=== PATIENT | female | born 1935 | race Caucasian/White ===

== ENCOUNTER 2017-01-06 17:37 | Emergency (ER) | payer MEDICARE, BC ==
[2017-01-06] MEDS ORDERED: Albuterol/Ipratropium 3.0-0.5 MG/3 ML Neb Soln NEB ONE (18:33)
[2017-01-06] MEDS ORDERED: Azithromycin 250 MG Tab PO ONE (19:45)
[2017-01-06 20:09] VITALS: BP 127/85
--- NOTE | 2017-01-07 12:22 | CR ---
INDICATION: Cough. CHEST: PA and lateral views of the chest, 01/06/2017, were compared with 2015 and revealed heavy markings at the left lung base and to a lesser extent right lung base. These markings may be on the basis of fibrosis from previous inflammatory disease. However, pneumonia cannot be excluded at the right costophrenic angle to a minimal extent and to a moderate extent at the left lung base - lower lung field. There are also heavy markings in the right mid lung field, which appear similar to the previous study. No gross consolidating pneumonia was identified, however, and no significant pleural fluid was seen, although minimal pleuritis at the costophrenic angles could also be present. This appearance may simply be on the basis of fibrosis, however. Prominent AP diameter, flattening of diaphragm leaves, and mild hyperaeration all suggest COPD. The heart appears enlarged with LVE. The aorta is tortuous with calcification in the arch. Compression fracture is noted at what appears to be T12 and likely was present previously, but to a similar extent. IMPRESSION: 1. Heavy markings at the lung bases, left greater than right, with some pleural thickening at the costophrenic angles, raising question of pneumonia and pleuritis versus pleuroparenchymal fibrosis - correlate clinically. 2. ASHD with LVE. 3. Probable COPD. 4. DJD and question of demineralization, raising question of osteoporosis with a compression fracture that is stable or perhaps slightly increased, compared with 2016. MTDD
--- NOTE | 2017-01-08 12:33 | ER ---
DATE SEEN: 01/06/2017 TIME SEEN: The patient was seen at 1830 hours. HISTORY OF PRESENT ILLNESS: This is a pleasant woman gives a history of increased congestion and cough for the past 5 days without fever. She has mild shortness of breath with exertion. She has history of asthma. She has noticed a slight weather change, but the weather has actually been no decrease in the barometric pressure. No history of fever and no chills. Mild dyspnea on exertion. Denies orthopnea or PND. No pedal edema. No chest pain, irregular heartbeat, atrial fibrillation, headache, strokes, myocardial infarctions. Previous diagnosis of cholelithiasis and also hemochromatosis. Previous history of cholecystectomy, hysterectomy, nonsmoker. Alcohol infrequently. REVIEW OF SYSTEMS: Negative except for patient's cough and as noted above in HPI. PHYSICAL EXAMINATION: VITAL SIGNS: Has a blood pressure of 149/59, heart rate 96 and regular, respirations 16, and oxygen saturation 95%. As the patient's pressure relented in the ED, was dismissed with a blood pressure 129/85 with a heart rate of 61. GENERAL: The patient is alert, has decreased hearing. Looks young for her age (81). HEENT: TMs negative. Pharynx without abnormality. Gag in place. Uvula midline. No thyromegaly. No masses in neck. No cervical adenopathy. CARDIAC: S2 is greater than S1. No murmur heard. LUNGS: There is a mild amount of rales posteriorly in the bases. There are occasional musical rhonchi heard, but this is minimal. No intercostal retractions, subcostal retractions, or suprasternal retractions or jugular venous distention. ABDOMEN: Soft. No hepatosplenomegaly. No guarding. No abdominal discomfort. LOWER EXTREMITIES: With 1+ pedal edema. Dorsalis pedis and posterior tibialis as well as the radial and ulnar pulses are intact and normal. Cap refill is less than 1 second. DIAGNOSTIC DATA: The patient had a chest x-ray. There is some hazy infiltrate at the base of the lungs and the diaphragmatic shadow was very crisp and clear, as well as the cardiac shadow on the right. The left cardiac shadow is a little decreased. ASSESSMENT: 1. Possible atelectasis/pneumonitis or space occupying disease - pneumonia. She no longer has a bronchial wall cuffing that was present on the previous x-ray. Her x-ray looks better than the previous x-ray. 2. Bronchitis. Possible mild pneumonitis. We discussed this with the [facility], who suggested we do not treat with antibiotics. I subjectively note that I will not get by with dismissing this patient without antibiotics, because the demand is very high. She received DuoNeb in the ER and felt much better. She did not have any coughing in the ER. She talks about coughing paroxysms at home. I think this is somewhat frustrating for her. She thinks she has serious illness. 3. Most likely the patient has viral bronchitis. I did use Z-Prudencio, as she preferred, and I did prescribe using DuoNeb at home. It turned out, after arrangements were made, they decided they did not want to use nebulization machine, and they would forego this. PLAN: Plan is to follow up with doctor in a week. Otherwise earlier if worse. OTHER DIAGNOSES: Hemochromatosis, cholelithiasis, decreased hearing, status post cholecystectomy, and hysterectomy. /[id number] MARY/JUANA
== END 2017-01-06 20:07 | disposition home or self-care (01) ==
LOC: FB.ED 17:37
DX: J40 Bronchitis, not specified as acute or chronic (principal)
CPT/HCPCS: 36415; 71020; 80053; 84484; 85025; 94640; 99283; A9270; J7620

== ENCOUNTER 2017-03-26 13:40 | Emergency (ER) | payer MEDICARE, BC ==
[2017-03-26] MEDS ORDERED: predniSONE 20 MG Tab PO ONE (13:59)
--- NOTE | 2017-03-26 14:12 | EDM.PDOC ---
ED HPI GENERAL MEDICAL PROBLEM - General Chief Complaint: Neurological Problem Stated Complaint: FACIAL DROOPING Time Seen by Provider: 03/26/17 13:40 Source of Information: Reports: Patient, Family History Limitations: Reports: No Limitations - History of Present Illness INITIAL COMMENTS - FREE TEXT/NARRATIVE: 81 y.o.w.f came to the ed 2-3 days after she noticed she can not close her right eye in full and had pain, redness of her right eye. Today she noticed a right facial droop, which prompted her to come to the ed. No trauma, no N/V/D. pt had cold symptoms a few days ago. No other acute medical issues. BP 180/91 RR 18 Pulse ox 99% on RA Pulse 78 BPM. Temp 36.7 Onset Date: 03/22/17 Onset Time: 09:00 Duration: Day(s):, Intermittent, Waxing/Waning Location: Reports: Face Quality: Reports: Burning, Dull Severity: Mild Improves with: Reports: Rest Worsens with: Reports: Movement Context: Reports: Other (right facial droop, unable to close right eye in full) Associated Symptoms: Reports: Other (rigjht facial droop) - Related Data Allergies Allergy/AdvReac Type Severity Reaction Status Date / Time strawberry Allergy Hives Verified 03/26/17 13:52 Home Meds: Home Meds Albuterol [Ventolin HFA] 2 puff ORAL.INH ASDIRECTED PRN 02/10/16 [History] Aspirin [Halfprin] 81 mg PO DAILY PRN 01/06/17 [History] Gentamicin [Garamycin 0.3% Ophth Soln] 5 ml EYEBOTH TID #2 drop 03/26/17 [Rx] predniSONE [Prednisone] 20 mg PO DAILY #5 tablet 03/26/17 [Rx] valACYclovir [Valtrex] 1,000 mg PO TID #21 tablet 03/26/17 [Rx] Past Medical History HEENT History: Reports: Impaired Vision, Other (See Below) Other HEENT History: macular hole L eye, 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 Respiratory History: Reports: Asthma Gastrointestinal History: Reports: Cholelithiasis Genitourinary History: Reports: Urinary Incontinence, Other (See Below) 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: Musculoskeletal History: Reports: Arthritis, Fracture Other Musculoskeletal History: fx L ankle, Hematologic History: Reports: Hemochromatosis - Infectious Disease History Infectious Disease History: Reports: Chicken Pox, Measles, Mumps, Shingles - Past Surgical History HEENT Surgical History: Reports: Cataract Surgery, Eye Surgery GI Surgical History: Reports: Cholecystectomy, Colonoscopy Female Surgical History: Reports: Hysterectomy, Oophorectomy Musculoskeletal Surgical History: Reports: Arthroscopic Procedure Other Musculoskeletal Surgeries/Procedures:: R knee scope Social & Family History - Family History Family Medical History: Noncontributory - Tobacco Use Smoking Status *Q: Never Smoker Second Hand Smoke Exposure: No - Caffeine Use Caffeine Use: Reports: Coffee, Soda - Recreational Drug Use Recreational Drug Use: No ED ROS GENERAL - Review of Systems Review Of Systems: See Below Constitutional: Reports: No Symptoms HEENT: Reports: Eye Discharge Respiratory: Reports: No Symptoms Cardiovascular: Reports: No Symptoms Endocrine: Reports: No Symptoms GI/Abdominal: Reports: No Symptoms : Reports: No Symptoms Musculoskeletal: Reports: No Symptoms Skin: Reports: No Symptoms Neurological: Reports: Paresthesia (right cheek) Psychiatric: Reports: No Symptoms Hematologic/Lymphatic: Reports: No Symptoms Immunologic: Reports: No Symptoms ED EXAM, NEURO - Physical Exam Exam: See Below Exam Limited By: No Limitations General Appearance: Alert, WD/WN, No Apparent Distress Eye Exam: Right Eye: Conjunctival Injection, Bilateral Eye: EOMI Ears: Normal External Exam Nose: Normal Inspection, Normal Mucosa Throat/Mouth: Normal Inspection, Normal Lips Head Exam: Atraumatic, Normocephalic Neck: Normal Inspection, Supple, Non-Tender, Full Range of Motion Respiratory/Chest: No Respiratory Distress, Lungs Clear, Normal Breath Sounds, No Accessory Muscle Use, Chest Non-Tender Cardiovascular: Normal Peripheral Pulses, Regular Rate, Rhythm, No Edema, No Gallop GI/Abdominal: Normal Bowel Sounds, Soft, Non-Tender, No Organomegaly, No Distention, No Abnormal Bruit, No Mass, Pelvis Stable (Female) Exam: Deferred Rectal (Female) Exam: Deferred Neurological: Alert, Normal Mood/Affect, Normal Dorsiflexion, Normal Gait, Other (right facial droop, unable to close right eye in full) Back Exam: Normal Inspection, Full Range of Motion Extremities: Normal Inspection, Normal Range of Motion, Non-Tender, No Pedal Edema Psychiatric: Normal Affect, Normal Mood Skin Exam: Warm, Dry, Intact, Normal Color, No Rash Course - Vital Signs Text/Narrative:: 81 y.o.w.f came to the ed 2-3 days after she noticed she can not close her right eye in full and had pain, redness of her right eye. Today she noticed a right facial droop, which prompted her to come to the ed. No trauma, no N/V/D. pt had cold symptoms a few days ago. No other acute medical issues. BP 180/91 RR 18 Pulse ox 99% on RA Pulse 78 BPM. Temp 36.7 PE: right sided facial droop, including right forehead with right sided conjunctivitis Imaging: CT head: NAD Labs: WBC Na 144 K 4.3 BUN 18 Cr. .8 GFR > 60 Impression: Handley's palsy right face. Conjunctivitis Tx: Prednison, Vancyclovir Gentamycin ointment Reexam: Improved Plan: D/C with instructions Last Recorded V/S: Last Vital Signs Temp 36.7 C 03/26/17 13:40 Pulse 82 03/26/17 15:00 Resp 18 03/26/17 15:00 BP 157/86 H 03/26/17 15:00 Pulse Ox 99 03/26/17 15:00 - Orders/Labs/Meds Labs: Laboratory Tests 03/26/17 03/26/17 Range/Units 14:20 14:20 WBC 5.5 (4.5-12.0) X10-3/uL RBC 4.76 (3.23-5.20) x10(6)uL Hgb 13.9 (11.5-15.5) g/dL Hct 42.5 (30.0-51.3) % MCV 89.3 (80-96) fL MCH 29.3 (27.7-33.6) pg MCHC 32.8 (32.2-35.4) g/dL RDW 12.6 (11.5-15.5) % Plt Count 166 (125-369) X10(3)uL MPV 9.8 (7.4-10.4) fL Neut % (Auto) 65.3 (46-82) % Lymph % (Auto) 19.4 (13-37) % [place] % (Auto) 14.8 H (4-12) % Eos % (Auto) 0 L (1.0-5.0) % Baso % (Auto) 0 (0-2) % Neut # (Auto) 3.6 (1.6-8.3) # Lymph # (Auto) 1.1 (0.6-5.0) # [place] # (Auto) 0.8 (0.0-1.3) # Eos # (Auto) 0.0 (0.0-0.8) # Baso # (Auto) 0.0 (0.0-0.2) # Sodium 144 (135-145) mmol/L Potassium 4.3 (3.5-5.3) mmol/L Chloride 106 (100-110) mmol/L Carbon Dioxide 29 (21-32) mmol/L BUN 18 (7-18) mg/dL Creatinine 0.8 (0.55-1.02) mg/dL Est Cr Clr Drug Dosing TNP Estimated GFR (MDRD) > 60 (>60) BUN/Creatinine Ratio 22.5 H (9-20) Glucose 91 (80-116) mg/dL Calcium 9.1 (8.6-10.2) mg/dL Meds: Medications Discontinued Medications Generic Name Dose Route Start Last Admin Trade Name Freq PRN Reason Stop Dose Admin Prednisone 20 mg 03/26/17 13:59 03/26/17 14:30 Prednisone PO 03/26/17 14:00 20 mg ONETIME ONE Administration Departure - Departure Time of Disposition: 14:42 Disposition: Home, Self-Care 01 Condition: Good (bells) Clinical Impression: Handley palsy, Acute bacterial conjunctivitis of right eye - Discharge Information Prescriptions: Gentamicin [Garamycin 0.3% Ophth Soln] 5 ml EYEBOTH TID #2 drop predniSONE [Prednisone] 20 mg PO DAILY #5 tablet valACYclovir [Valtrex] 1,000 mg PO TID #21 tablet Instructions: Handley Palsy Referrals: Kayden Hinojosa MD [Primary Care Provider] - Forms: ED Department Discharge Additional Instructions: Please take the meds as recommended (gentamycin ointment, valacyclovir, Predinson). Please f/u with your doctor in 3 days. Please come back if your symptoms get worse acutely
--- NOTE | 2017-03-26 14:56 | CT ---
INDICATION: Facial droop right side of face with numbness Saturday. Blurry vision. CT HEAD WITHOUT CONTRAST: Serial contiguous 2.5 and 5-mm sections were obtained through the brain without contrast 03/26/2017. No comparison study was available. Total Exam DLP = 949.36 mGy-cm. Moderate degenerative changes are noted at the atlantoodontoid joint. Visualized mastoid air cells appear to be well aerated. Visualized paranasal sinus air cells were unremarkable and well aerated. There may be some demineralization, suggesting osteoporosis. No other cranial abnormality was suggested. Minimal calcification is noted in the vertebral arteries, with moderate calcification in the internal carotid arteries. There is suggestion of a tiny lacunar infarct in the left basal ganglia. No other abnormal areas of density were identified. No shift of midline structures or ventricular abnormalities were seen. IMPRESSION: 1. No definite acute intracranial abnormality - no bleeding site or hematoma. 2. Cerebrovascular disease, as suggested by calcifications in the vertebral, and to a greater extent internal carotid arteries. 3. 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 Report was called to Dr. Peñaloza at 1443 hours, 03/26/2017. [facility]
[2017-03-26 17:29] VITALS: BP 157/86
== END 2017-03-26 15:18 | disposition home or self-care (01) ==
LOC: FB.ED 13:40
DX: G51.0 Bell's palsy (principal); H10.31 Unspecified acute conjunctivitis, right eye; J45.909 Unspecified asthma, uncomplicated; Z79.82 Long term (current) use of aspirin; Z79.899 Other long term (current) drug therapy; Z91.018 Allergy to other foods
CPT/HCPCS: 36415; 70450; 80048; 85025; 99284; A9270; 99283

== ENCOUNTER 2021-08-06 08:46 | Inpatient (IN) | payer MEDICARE, BC ==
[2021-08-06] MEDS ORDERED: Albuterol/Ipratropium 3.0-0.5 MG/3 ML Neb Soln NEB ONE ×2 (08:57→13:15)
[2021-08-06 10:07] LABS: CORONAVIRUS COVID-19 NAA NEGATIVE (NEGATIVE)
[2021-08-06] MEDS ORDERED: Sodium Chloride 0.9% 500 ML IV ONE (10:42)
[2021-08-06] MEDS ORDERED: cefTRIAXone 2 GM Vial IVPUSH ONE (10:45)
[2021-08-06] MEDS ORDERED: Azithromycin 500 MG in Sodium Chloride 0.9% 250 ML IV ONE (10:46)
[2021-08-06] MEDS: Sodium Chloride 0.9% 1,000 ML IV SCH ×2 (10:52→16:13)
[2021-08-06] MEDS ORDERED: Iopamidol 755 Mg/ML 75 ML Bottle IV ONE (11:46)
[2021-08-06] MEDS ORDERED: Albuterol 8 GM Inhaler INH PRN (14:50)
[2021-08-06] MEDS ORDERED: Furosemide 40 MG/4 ML VIAL IVPUSH ONE (18:09)
[2021-08-06] MEDS: Albuterol/Ipratropium 3.0-0.5 MG/3 ML Neb Soln NEB PRN ×2 (18:14→23:20)
[2021-08-06] MEDS: Acetaminophen 500 MG Tab PO PRN (19:52)
[2021-08-07] MEDS: Sodium Chloride 0.9% 1,000 ML IV SCH (01:36)
[2021-08-07] MEDS: Albuterol/Ipratropium 3.0-0.5 MG/3 ML Neb Soln NEB PRN ×2 (05:40→13:34)
[2021-08-07] MEDS: Acetaminophen 500 MG Tab PO PRN ×2 (05:40→22:20)
[2021-08-07] MEDS: Furosemide 40 MG/4 ML VIAL IVPUSH SCH ×2 (09:03→13:37)
[2021-08-07] MEDS: Potassium Chloride 20 MEQ Tab.ER PO SCH ×2 (09:03→21:59)
[2021-08-07] MEDS: amLODIPine 5 MG Tab PO SCH (10:26)
[2021-08-07] MEDS: Azithromycin 500 MG in Sodium Chloride 0.9% 250 ML IV SCH (10:27)
[2021-08-07] MEDS: cefTRIAXone 2 GM Vial IVPUSH SCH (10:27)
[2021-08-07] MEDS ORDERED: Budesonide 0.5 MG/2 ML Neb Susp INH ONE (14:15)
[2021-08-07] MEDS ORDERED: VANCOmycin 1.5 GM/300 ML 300 ML IV ONE (17:00)
[2021-08-07] MEDS ORDERED: Furosemide 40 MG/4 ML VIAL IVPUSH ONE (18:00)
[2021-08-07] MEDS ORDERED: Furosemide 20 MG/2 ML VIAL IVPUSH ONE (18:00)
[2021-08-07] MEDS: Budesonide 0.5 MG/2 ML Neb Susp NEB SCH (21:59)
[2021-08-07] MEDS: Sodium Chloride 0.9% 10 ML Syringe FLUSH PRN ×2 (22:08→22:09)
[2021-08-08] MEDS: Acetaminophen 500 MG Tab PO PRN ×2 (04:23→22:38)
[2021-08-08] MEDS: Ibuprofen 200 MG Tab PO PRN ×2 (04:23→23:33)
[2021-08-08] MEDS: Budesonide 0.5 MG/2 ML Neb Susp NEB SCH ×2 (07:36→20:16)
[2021-08-08] MEDS: Furosemide 40 MG/4 ML VIAL IVPUSH SCH ×3 (07:41→13:15)
[2021-08-08] MEDS ORDERED: Furosemide 40 MG/4 ML VIAL IVPUSH SCH (08:00)
[2021-08-08] MEDS: amLODIPine 5 MG Tab PO SCH (09:19)
[2021-08-08] MEDS: Potassium Chloride 20 MEQ Tab.ER PO SCH ×2 (09:19→20:15)
[2021-08-08] MEDS: Metoprolol Succinate 25 MG Tab.ER PO SCH (11:10)
[2021-08-08] MEDS: cefTRIAXone 2 GM Vial IVPUSH SCH (11:12)
[2021-08-08] MEDS: Azithromycin 500 MG in Sodium Chloride 0.9% 250 ML IV SCH (11:31)
[2021-08-08] MEDS: Sodium Chloride 0.9% 10 ML Syringe FLUSH PRN ×2 (13:15→14:27)
[2021-08-08] MEDS: VANCOmycin 1 GM/200 ML 200 ML IV SCH (14:27)
[2021-08-08] MEDS ORDERED: Nystatin Topical Powder 15 GM Bottle TOP SCH (16:00)
[2021-08-08] MEDS: Nystatin Topical Powder 15 GM Bottle TOP SCH ×2 (16:27→20:14)
[2021-08-08] MEDS ORDERED: VANCOmycin 1.25 GM/250 ML 250 ML IV SCH (17:00)
[2021-08-08] MEDS: Melatonin 3 MG Tab PO PRN (23:33)
[2021-08-09] MEDS: Budesonide 0.5 MG/2 ML Neb Susp NEB SCH ×2 (06:40→21:53)
[2021-08-09] MEDS ORDERED: Furosemide 40 MG/4 ML VIAL IVPUSH SCH (08:00)
[2021-08-09] MEDS: Sodium Chloride 0.9% 10 ML Syringe FLUSH PRN ×7 (09:16→15:30)
[2021-08-09] MEDS: Potassium Chloride 20 MEQ Tab.ER PO SCH ×2 (09:25→22:02)
[2021-08-09] MEDS: Metoprolol Succinate 25 MG Tab.ER PO SCH (09:26)
[2021-08-09] MEDS: Nystatin Topical Powder 15 GM Bottle TOP SCH ×2 (09:27→21:49)
[2021-08-09] MEDS: cefTRIAXone 2 GM Vial IVPUSH SCH (11:00)
[2021-08-09] MEDS: Azithromycin 500 MG in Sodium Chloride 0.9% 250 ML IV SCH (11:14)
[2021-08-09] MEDS: Albuterol/Ipratropium 3.0-0.5 MG/3 ML Neb Soln NEB PRN ×2 (13:40→21:47)
[2021-08-09] MEDS: VANCOmycin 1 GM/200 ML 200 ML IV SCH (14:13)
[2021-08-09] MEDS: Codeine/guaiFENesin 10-100 MG/5 ML Syrup 5 ML Cup PO PRN ×2 (15:37→21:58)
[2021-08-09] MEDS: Acetaminophen 500 MG Tab PO PRN (21:57)
[2021-08-09] MEDS: Melatonin 3 MG Tab PO PRN (21:58)
[2021-08-10] MEDS: Albuterol/Ipratropium 3.0-0.5 MG/3 ML Neb Soln NEB PRN ×2 (06:25→20:53)
[2021-08-10] MEDS: Budesonide 0.5 MG/2 ML Neb Susp NEB SCH ×2 (06:43→20:45)
[2021-08-10] MEDS ORDERED: Furosemide 40 MG Tab PO SCH (09:00)
[2021-08-10] MEDS: Metoprolol Succinate 25 MG Tab.ER PO SCH (09:18)
[2021-08-10] MEDS: Nystatin Topical Powder 15 GM Bottle TOP SCH ×2 (09:18→20:44)
[2021-08-10] MEDS: Potassium Chloride 20 MEQ Tab.ER PO SCH ×2 (09:18→20:44)
[2021-08-10] MEDS: Codeine/guaiFENesin 10-100 MG/5 ML Syrup 5 ML Cup PO PRN ×2 (09:20→18:17)
[2021-08-10] MEDS: Furosemide 40 MG/4 ML VIAL IV SCH ×2 (10:06→14:44)
[2021-08-10] MEDS: Doxycycline 100 MG Tab PO SCH ×2 (10:06→20:46)
[2021-08-10] MEDS: Sodium Chloride 0.9% 10 ML Syringe FLUSH PRN ×8 (10:09→14:49)
[2021-08-10] MEDS: cefTRIAXone 2 GM Vial IVPUSH SCH (11:31)
[2021-08-10] MEDS: Enoxaparin 40 MG/0.4 ML Syringe SUBCUT SCH (11:43)
[2021-08-10] MEDS ORDERED: Iopamidol 755 Mg/ML 75 ML Bottle IV ONE ×2 (11:49→13:10)
[2021-08-10] MEDS: Azithromycin 500 MG in Sodium Chloride 0.9% 250 ML IV SCH (12:35)
[2021-08-10] MEDS: Melatonin 3 MG Tab PO PRN (20:52)
[2021-08-10] MEDS: Acetaminophen 500 MG Tab PO PRN (20:52)
[2021-08-11] MEDS: Codeine/guaiFENesin 10-100 MG/5 ML Syrup 5 ML Cup PO PRN ×3 (01:51→21:43)
[2021-08-11] MEDS: Budesonide 0.5 MG/2 ML Neb Susp NEB SCH ×2 (07:47→21:12)
[2021-08-11] MEDS: Acetaminophen 500 MG Tab PO PRN ×2 (09:14→16:31)
[2021-08-11] MEDS: Potassium Chloride 20 MEQ Tab.ER PO SCH ×2 (09:15→21:04)
[2021-08-11] MEDS: Enoxaparin 40 MG/0.4 ML Syringe SUBCUT SCH (09:15)
[2021-08-11] MEDS: Metoprolol Succinate 25 MG Tab.ER PO SCH (09:16)
[2021-08-11] MEDS: Nystatin Topical Powder 15 GM Bottle TOP SCH ×2 (09:16→21:17)
[2021-08-11] MEDS: Cefdinir 300 MG Cap PO SCH ×2 (09:16→21:04)
[2021-08-11] MEDS: Doxycycline 100 MG Tab PO SCH ×2 (09:17→21:04)
[2021-08-11] MEDS: Furosemide 40 MG Tab PO SCH ×2 (10:30→16:30)
[2021-08-11] MEDS: Melatonin 3 MG Tab PO PRN (21:18)
[2021-08-11] MEDS: Ibuprofen 200 MG Tab PO PRN (21:18)
[2021-08-12] MEDS: Budesonide 0.5 MG/2 ML Neb Susp NEB SCH ×2 (06:06→20:23)
[2021-08-12] MEDS: Potassium Chloride 20 MEQ Tab.ER PO SCH ×2 (08:00→20:22)
[2021-08-12] MEDS: Furosemide 40 MG Tab PO SCH ×2 (08:00→13:36)
[2021-08-12] MEDS: Enoxaparin 40 MG/0.4 ML Syringe SUBCUT SCH (08:01)
[2021-08-12] MEDS: Nystatin Topical Powder 15 GM Bottle TOP SCH ×2 (08:01→20:22)
[2021-08-12] MEDS: Cefdinir 300 MG Cap PO SCH ×2 (08:02→20:23)
[2021-08-12] MEDS: Metoprolol Succinate 25 MG Tab.ER PO SCH (08:02)
[2021-08-12] MEDS: Doxycycline 100 MG Tab PO SCH ×2 (08:03→20:23)
[2021-08-12] MEDS: Albuterol/Ipratropium 3.0-0.5 MG/3 ML Neb Soln NEB PRN (13:34)
[2021-08-12] MEDS: Acetaminophen 500 MG Tab PO PRN (13:35)
[2021-08-12] MEDS: Melatonin 3 MG Tab PO PRN (21:40)
[2021-08-12] MEDS: Ibuprofen 200 MG Tab PO PRN (21:40)
[2021-08-12] MEDS: Codeine/guaiFENesin 10-100 MG/5 ML Syrup 5 ML Cup PO PRN (21:40)
[2021-08-13] MEDS ORDERED: Gabapentin 100 MG Cap PO ONE (02:51)
[2021-08-13] MEDS: Sodium Chloride 0.9% 10 ML Syringe FLUSH PRN (06:20)
[2021-08-13] MEDS: Budesonide 0.5 MG/2 ML Neb Susp NEB SCH ×2 (06:20→20:27)
[2021-08-13] MEDS: Furosemide 40 MG Tab PO SCH ×2 (08:10→14:03)
[2021-08-13] MEDS: Potassium Chloride 20 MEQ Tab.ER PO SCH ×2 (08:10→20:23)
[2021-08-13] MEDS: Enoxaparin 40 MG/0.4 ML Syringe SUBCUT SCH (08:11)
[2021-08-13] MEDS: Nystatin Topical Powder 15 GM Bottle TOP SCH ×2 (08:11→20:27)
[2021-08-13] MEDS: Doxycycline 100 MG Tab PO SCH ×2 (08:11→20:24)
[2021-08-13] MEDS: Cefdinir 300 MG Cap PO SCH ×2 (08:12→20:24)
[2021-08-13] MEDS: Metoprolol Succinate 25 MG Tab.ER PO SCH (08:12)
[2021-08-13] MEDS ORDERED: Melatonin 3 MG Tab PO PRN (08:23)
[2021-08-13] MEDS ORDERED: traZODone 50 MG Tab PO PRN (10:29)
[2021-08-13] MEDS: Acetaminophen 500 MG Tab PO PRN (21:36)
[2021-08-13] MEDS: Codeine/guaiFENesin 10-100 MG/5 ML Syrup 5 ML Cup PO PRN (21:36)
[2021-08-14] MEDS: Budesonide 0.5 MG/2 ML Neb Susp NEB SCH (06:03)
[2021-08-14 08:17] VITALS: BP 124/48; PULSE 70
[2021-08-14] MEDS: Furosemide 40 MG Tab PO SCH (08:27)
[2021-08-14] MEDS: Nystatin Topical Powder 15 GM Bottle TOP SCH (08:28)
[2021-08-14] MEDS: Doxycycline 100 MG Tab PO SCH (08:29)
[2021-08-14] MEDS: Potassium Chloride 20 MEQ Tab.ER PO SCH (08:29)
[2021-08-14] MEDS: Cefdinir 300 MG Cap PO SCH (08:29)
[2021-08-14] MEDS: Enoxaparin 40 MG/0.4 ML Syringe SUBCUT SCH (08:32)
[2021-08-14] MEDS: Metoprolol Succinate 25 MG Tab.ER PO SCH (08:33)
== END 2021-08-14 09:28 | disposition swing bed (61) | DRG 871 ==
LOC: FB.ED 08:46 → FB.MS 13:57
PROVIDERS: ADMIT Family Medicine; ATTEND Family Medicine
PROC: 5A0945A Assistance with Respiratory Ventilation, 24-96 Consecutive Hours, High Flow/Velocity Cannula (ICD-10-PCS; principal; 2021-08-06)
PROC: 3E03329 Introduction of Other Anti-infective into Peripheral Vein, Percutaneous Approach (ICD-10-PCS; 2021-08-06)
DX: A41.9 Sepsis, unspecified organism (principal); J18.9 Pneumonia, unspecified organism; I50.9 Heart failure, unspecified; I50.33 Acute on chronic diastolic (congestive) heart failure; R09.02 Hypoxemia; N17.9 Acute kidney failure, unspecified; E83.119 Hemochromatosis, unspecified; I27.20 Pulmonary hypertension, unspecified; B37.2 Candidiasis of skin and nail; H16.429 Pannus (corneal), unspecified eye; G47.00 Insomnia, unspecified; J45.909 Unspecified asthma, uncomplicated; I11.0 Hypertensive heart disease with heart failure; H54.7 Unspecified visual loss; K80.20 Calculus of gallbladder without cholecystitis without obstruction; R32 Unspecified urinary incontinence; R35.0 Frequency of micturition; M19.90 Unspecified osteoarthritis, unspecified site; Z86.16 Personal history of COVID-19; Z90.49 Acquired absence of other specified parts of digestive tract; Z90.710 Acquired absence of both cervix and uterus; Z79.899 Other long term (current) drug therapy; Z91.018 Allergy to other foods; Z98.49 Cataract extraction status, unspecified eye; Z20.822 Contact with and (suspected) exposure to COVID-19
CPT/HCPCS: 0240U; 36415; 71046; 71275; 80048; 80053; 80202; 83605; 83880; 84484; 85025; 85379; 87040; 87070; 87205; 93005; 93010; 93306; 94150; 94640; 94762; 96365; 96366; 96375; 96376; 97110-GO; 97110-GP; 97161-GP; 97166-GO; 97530-GO; 99284; 99285-25; A9270-GY; J0456; J0696; J1650; J1940; J3370; J3490; J7030; J7050; J7620; Q9967

== ENCOUNTER 2021-08-14 09:30 | Inpatient (IN) | payer MEDICARE, BC ==
[2021-08-14] MEDS ORDERED: traZODone 50 MG Tab PO PRN (10:05)
[2021-08-14] MEDS ORDERED: Albuterol 8 GM Inhaler INH PRN (10:05)
[2021-08-14] MEDS ORDERED: Albuterol/Ipratropium 3.0-0.5 MG/3 ML Neb Soln NEB PRN (10:05)
[2021-08-14] MEDS ORDERED: Codeine/guaiFENesin 10-100 MG/5 ML Syrup 5 ML Cup PO PRN (10:05)
[2021-08-14] MEDS: Furosemide 40 MG Tab PO SCH (14:16)
[2021-08-14] MEDS: Potassium Chloride 20 MEQ Tab.ER PO SCH (20:37)
[2021-08-14] MEDS: Cefdinir 300 MG Cap PO SCH (20:38)
[2021-08-14] MEDS: Doxycycline 100 MG Tab PO SCH (20:39)
[2021-08-14] MEDS: Budesonide 0.5 MG/2 ML Neb Susp NEB SCH (20:39)
[2021-08-14] MEDS: Acetaminophen 500 MG Tab PO PRN (20:55)
[2021-08-14] MEDS: Melatonin 3 MG Tab PO PRN (20:55)
[2021-08-15] MEDS: Nystatin Topical Powder 15 GM Bottle TOP SCH ×3 (01:44→20:15)
[2021-08-15] MEDS: Budesonide 0.5 MG/2 ML Neb Susp NEB SCH ×2 (06:37→20:16)
[2021-08-15] MEDS: Furosemide 40 MG Tab PO SCH ×2 (08:37→14:16)
[2021-08-15] MEDS: Potassium Chloride 20 MEQ Tab.ER PO SCH ×2 (08:37→20:15)
[2021-08-15] MEDS: Cefdinir 300 MG Cap PO SCH ×2 (08:40→20:16)
[2021-08-15] MEDS: Metoprolol Succinate 25 MG Tab.ER PO SCH (08:41)
[2021-08-15] MEDS: Doxycycline 100 MG Tab PO SCH ×2 (08:42→20:16)
[2021-08-15] MEDS: Acetaminophen 500 MG Tab PO PRN (20:51)
[2021-08-15] MEDS: Melatonin 3 MG Tab PO PRN (20:57)
[2021-08-16] MEDS: Budesonide 0.5 MG/2 ML Neb Susp NEB SCH ×2 (06:41→21:43)
[2021-08-16] MEDS: Cefdinir 300 MG Cap PO SCH ×2 (08:48→21:43)
[2021-08-16] MEDS: Furosemide 40 MG Tab PO SCH ×2 (08:48→14:38)
[2021-08-16] MEDS: Metoprolol Succinate 25 MG Tab.ER PO SCH (08:49)
[2021-08-16] MEDS: Potassium Chloride 20 MEQ Tab.ER PO SCH ×2 (08:52→21:42)
[2021-08-16] MEDS: Acetaminophen 500 MG Tab PO PRN ×2 (08:58→22:07)
[2021-08-16] MEDS: Doxycycline 100 MG Tab PO SCH ×2 (10:56→21:44)
[2021-08-16] MEDS: Nystatin Topical Powder 15 GM Bottle TOP SCH ×2 (15:43→21:43)
[2021-08-16] MEDS: Melatonin 3 MG Tab PO PRN (22:07)
[2021-08-17] MEDS: Budesonide 0.5 MG/2 ML Neb Susp NEB SCH (06:42)
[2021-08-17] MEDS: Potassium Chloride 20 MEQ Tab.ER PO SCH ×2 (08:19→21:07)
[2021-08-17] MEDS: Cefdinir 300 MG Cap PO SCH ×2 (08:19→20:59)
[2021-08-17] MEDS: Furosemide 40 MG Tab PO SCH ×2 (08:20→13:39)
[2021-08-17] MEDS: Metoprolol Succinate 25 MG Tab.ER PO SCH (08:20)
[2021-08-17] MEDS: Acetaminophen 500 MG Tab PO PRN (08:30)
[2021-08-17] MEDS: Doxycycline 100 MG Tab PO SCH ×2 (12:27→21:08)
[2021-08-17] MEDS: Nystatin Topical Powder 15 GM Bottle TOP SCH ×2 (12:40→21:06)
[2021-08-18] MEDS: Acetaminophen 500 MG Tab PO PRN ×2 (01:50→20:44)
[2021-08-18] MEDS: Melatonin 3 MG Tab PO PRN ×2 (01:50→20:43)
[2021-08-18] MEDS: Furosemide 40 MG Tab PO SCH ×2 (08:35→14:56)
[2021-08-18] MEDS: Nystatin Topical Powder 15 GM Bottle TOP SCH ×2 (08:35→20:36)
[2021-08-18] MEDS: Potassium Chloride 20 MEQ Tab.ER PO SCH ×2 (08:35→20:35)
[2021-08-18] MEDS: Cefdinir 300 MG Cap PO SCH ×2 (08:36→20:35)
[2021-08-18] MEDS: Doxycycline 100 MG Tab PO SCH ×2 (08:38→20:35)
[2021-08-18] MEDS: Metoprolol Succinate 25 MG Tab.ER PO SCH (08:40)
[2021-08-19] MEDS: Furosemide 40 MG Tab PO SCH ×2 (08:50→13:02)
[2021-08-19] MEDS: Nystatin Topical Powder 15 GM Bottle TOP SCH ×3 (08:50→21:45)
[2021-08-19] MEDS: Potassium Chloride 20 MEQ Tab.ER PO SCH ×2 (08:50→21:46)
[2021-08-19] MEDS: Cefdinir 300 MG Cap PO SCH ×2 (08:51→21:45)
[2021-08-19] MEDS: Metoprolol Succinate 25 MG Tab.ER PO SCH (08:52)
[2021-08-19] MEDS: Doxycycline 100 MG Tab PO SCH ×2 (08:53→21:45)
[2021-08-19] MEDS: Melatonin 3 MG Tab PO PRN (22:18)
[2021-08-19] MEDS: Acetaminophen 500 MG Tab PO PRN (22:18)
[2021-08-20 03:55] VITALS: BP 146/70; PULSE 67
[2021-08-20] MEDS: Furosemide 40 MG Tab PO SCH (08:36)
[2021-08-20] MEDS: Potassium Chloride 20 MEQ Tab.ER PO SCH (08:37)
[2021-08-20] MEDS: Nystatin Topical Powder 15 GM Bottle TOP SCH (08:37)
[2021-08-20] MEDS: Cefdinir 300 MG Cap PO SCH (08:38)
[2021-08-20] MEDS: Metoprolol Succinate 25 MG Tab.ER PO SCH (08:38)
== END 2021-08-20 10:25 | disposition home or self-care (01) | DRG 947 ==
LOC: FB.MS 09:30
PROVIDERS: ADMIT Family Medicine; ATTEND Student in an Organized Health Care Education/Training Program
DX: R53.81 Other malaise (principal); J18.9 Pneumonia, unspecified organism; J47.0 Bronchiectasis with acute lower respiratory infection; N17.9 Acute kidney failure, unspecified; Z51.5 Encounter for palliative care; I27.20 Pulmonary hypertension, unspecified; G47.9 Sleep disorder, unspecified; J45.20 Mild intermittent asthma, uncomplicated; E83.119 Hemochromatosis, unspecified; I11.0 Hypertensive heart disease with heart failure; I50.9 Heart failure, unspecified; B37.2 Candidiasis of skin and nail; M19.90 Unspecified osteoarthritis, unspecified site; Z90.49 Acquired absence of other specified parts of digestive tract; Z98.49 Cataract extraction status, unspecified eye; Z90.710 Acquired absence of both cervix and uterus
CPT/HCPCS: 94640; 97110-GO; 97110-GP; 97116-GP; 97530-GO; 97535-GO; A9270-GY